=== PATIENT | male | born 1990 | race Caucasian/White ===

== ENCOUNTER 2017-01-13 21:44 | Inpatient (IN) | payer OTHER ==
--- NOTE | 2017-01-13 22:05 | HP ---
COWS - Scale Resting Pulse: 1= MS 81-100 Sweatin= Beads of Sweat on Face Restless Observation: 3= Extraneous Movement Pupil Size: 1= Pupils >than Normal Bone or Joint Aches: 2= Severe Diffuse Aches Runny Nose/ Eye Tearin= Runny Nose/Eyes GI Upset > 30mins: 2= Nausea/Diarrhea Tremor Observation: 2= Slight Tremor Visible Yawning Observation: 2= >3x During Session Anxiety or Irritability: 1=Feels Anxious/Irritable Goose Flesh Skin: 3=Piloerection COWS Score: 22 Admission ROS S - HPI Chief Complaint: WITHDRAWAL SYMPTOMS Allergies/Adverse Reactions: Allergies Allergy/AdvReac Type Severity Reaction Status Date / Time No Known Allergies Allergy Verified 06/29/16 17:00 History of Present Illness: 26 y.o. man with an extensive history of heroin dependence is here for detox. He completed detox here in 06/2016 and states he completed rehab at [facility] in 07/2016. Exam Limitations: No Limitations - Ebola screening Have you traveled outside of the country in the last 21 days: No (N) Have you had contact with anyone from an Ebola affected area: No Do you have a fever: No - Review of Systems Constitutional: Chills, Loss of Appetite, Night Sweats, Changes in sleep, Unintentional Wgt. Loss EENT: reports: Tearing, Nose Congestion Respiratory: reports: No Symptoms reported Cardiac: reports: Lightheadedness GI: reports: Constipated, Poor Appetite : reports: No Symptoms Reported Musculoskeletal: reports: Back Pain Integumentary: reports: No Symptoms Reported Neuro: reports: Headache Endocrine: reports: No Symptoms Reported Hematology: reports: No Symptoms Reported Psychiatric: reports: Orientated x3, Depressed, other (Insomnia) Other Systems: Reviewed and Negative Patient History - Patient Medical History Hx Anemia: No Hx Asthma: No Hx Chronic Obstructive Pulmonary Disease (COPD): No Hx Cancer: No Hx Cardiac Disorders: No Hx Congestive Heart Failure: No Hx Hypertension: No Hx Hypercholesterolemia: No Hx Pacemaker: No HX Cerebrovascular Accident: No Hx Seizures: No Hx Dementia: No Hx Diabetes: No Hx Gastrointestinal Disorders: No Hx Liver Disease: No Hx Genitourinary Disorders: No Hx Sexually Transmitted Disorders: No Hx Renal Disease (ESRD): No Hx Thyroid Disease: No Hx Human Immunodeficiency Virus (HIV): No Hx Hepatitis C: No Hx Depression: Yes Hx Suicide Attempt: No Hx Bipolar Disorder: No Hx Schizophrenia: No - Patient Surgical History Past Surgical History: No Hx Neurologic Surgery: No Hx Cataract Extraction: No Hx Cardiac Surgery: No Hx Lung Surgery: No Hx Breast Surgery: No Hx Breast Biopsy: No Hx Abdominal Surgery: No Hx Appendectomy: No Hx Cholecystectomy: No Hx Genitourinary Surgery: No Hx Section: No Hx Orthopedic Surgery: No Anesthesia Reaction: No - PPD History Previous Implant?: Yes Documented Results: Negative w/o proof Implanted On Prior R Admission?: Yes Date: 11/27/15 Results: 2 mm PPD to be Administered?: No - Reproductive History Patient is a Female of Child Bearing Age (11 -55 yrs old): No - Smoking Cessation Smoking history: Current every day smoker Have you smoked in the past 12 months: Yes Aproximately how many cigarettes per day: 20 Cigars Per Day: 0 Hx Chewing Tobacco Use: No Initiated information on smoking cessation: Yes 'Breaking Loose' booklet given: 01/13/17 - Substance & Tx. History Hx Alcohol Use: No Hx Substance Use: Yes Substance Use Type: Heroin Hx Substance Use Treatment: Yes - Substances Abused Heroin Route: Injection Frequency: Daily Amount used: 10 bags Age of first use: 22 Date of Last Use: 01/13/17 Family Disease History - Family Disease History Family Disease History: CA: Grandparent (crack dependence ), Respiratory: Mother (asthma), Sister (asthma), Other: Grandparent Admission Physical Exam BHS - Vital Signs Vital Signs: Last Vital Signs Temp Pulse Resp BP Pulse Ox 98.7 F 99 H 18 121/72 01/13/17 22:06 01/13/17 22:06 01/13/17 22:06 01/13/17 22:06 - Physical General Appearance: Yes: Tremorous, Irritable, Anxious HEENTM: Yes: Hearing grossly Normal, Normal ENT Inspection, Normocephalic, Normal Voice Respiratory: Yes: Lungs Clear, Normal Breath Sounds, No Respiratory Distress, No Accessory Muscle Use Neck: Yes: No masses,lesions,Nodules Breast: Yes: Breast Exam Deferred Cardiology: Yes: Regular Rate, S1, S2 Abdominal: Yes: Non Tender, Flat, Soft Genitourinary: Yes: Other (No complaints reported) Back: Yes: Normal Inspection Musculoskeletal: Yes: Back pain Extremities: Yes: Normal Inspection, Normal Range of Motion, Non-Tender Neurological: Yes: Alert, Motor Strength 5/5, Normal Mood/Affect, Normal Response Integumentary: Yes: Normal Color, Dry, Warm, [place] Lymphatic: Yes: Within Normal Limits - Diagnostic (1) IV drug user Current Visit: Yes Status: Chronic (2) Opioid dependence with withdrawal Current Visit: Yes Status: Chronic (3) Nicotine dependence Current Visit: Yes Status: Chronic Qualifiers: Nicotine product type: cigarettes Substance use status: uncomplicated Qualified Code(s): F17.210 - Nicotine dependence, cigarettes, uncomplicated Cleared for Admission [facility] - Detox or Rehab [facility] Level of Care: Medically Managed Detox Regimen/Protocol: Methadone S Breath Alcohol Content Breath Alcohol Content: 0
[2017-01-13 22:09] VITALS: BMI 23.7
[2017-01-13] MEDS ORDERED: MAG HYDROX/AL HYDROX/SIMETH 30 ML UNIT-DOSE CUP PO PRN (22:14)
[2017-01-13] MEDS ORDERED: hydrOXYzine PAMOATE 50 MG CAPSULE (FP) PO PRN (22:14)
[2017-01-13] MEDS ORDERED: LOPERAMIDE HCL 2 MG CAPSULE PO PRN (22:14)
[2017-01-13] MEDS ORDERED: MAGNESIUM CITRATE 300 ML BOTTLE PO PRN (22:14)
[2017-01-13] MEDS ORDERED: METHADONE HCL 10 MG TABLET (FOR DETOX USE ONLY) PO ONE ×2 (22:14→23:00)
[2017-01-13] MEDS ORDERED: guaiFENesin/D-METHORPHAN HB 10 ML UNIT-DOSE CUPS PO PRN (22:14)
[2017-01-13] MEDS ORDERED: MAGNESIUM HYDROX 2400MG/30ML ORAL SUSPENSION 30 ML CUP PO PRN (22:14)
[2017-01-13] MEDS ORDERED: ACETAMINOPHEN 325 MG TABLET (FP) PO PRN (22:14)
[2017-01-13] MEDS ORDERED: P-EPHED 60MG/TRIPROLIDI 2.5MG TABLET PO PRN (22:14)
[2017-01-13] MEDS ORDERED: MENTHOL/PHENOL 1 EACH UD MM PRN (22:14)
[2017-01-13] MEDS ORDERED: IBUPROFEN 400 MG TABLET (FP) PO PRN (22:14)
[2017-01-13] MEDS: diphenhydrAMINE HCL 50 MG CAPSULE PO PRN (23:53)
[2017-01-13] MEDS: BACITRACIN 30 GM TUBE TOPICAL OINTMENT TP SCH (23:57)
[2017-01-14] MEDS: NICOTINE POLACRILEX 2 MG GUM BUC PRN ×4 (00:42→22:25)
[2017-01-14 09:58] LABS: MCH 31.4 pg (25.7-33.7); MCHC 33.7 g/dl (32.0-35.9); MEAN CELL VOLUME 93.4 fl (80-96); MEAN PLT VOLUME 10.1 fl (7.5-11.1); PLATELET COUNT 130 K/MM3 (134-434); RDW 13.2 % (11.9-15.9); WHITE BLOOD COUNT 6.7 K/mm3 (4.0-10.0)
[2017-01-14] MEDS ORDERED: METHADONE HCL 10 MG TABLET (FOR DETOX USE ONLY) PO ONE (10:00)
[2017-01-14 10:21] LABS: ALBUMIN 3.5 g/dl (3.4-5.0); ALK PHOS 108 U/L (45-117); ANION GAP 8 (8-16); BILIRUBIN,TOTAL 0.5 mg/dL (0.2-1.0); CALCIUM 8.4 mg/dL (8.5-10.1); CO2 26 mmol/L (21-32); CREATININE 0.8 mg/dL (0.7-1.3); GLUCOSE,RANDOM 88 mg/dL (74-106); SGOT/AST 20 U/L (15-37); SGPT/ALT 22 U/L (12-78); TOT PROT 6.5 g/dl (6.4-8.2)
[2017-01-14] MEDS: PRENATAL VITAMINS W/ FOLIC ACID TABLET (FP) PO SCH (10:45)
[2017-01-14] MEDS: BACITRACIN 30 GM TUBE TOPICAL OINTMENT TP SCH ×2 (10:45→23:38)
[2017-01-14] MEDS: NICOTINE 21 MG/24 HOURS TOPICAL PATCH TD SCH (10:45)
--- NOTE | 2017-01-14 13:49 | CONSULT ---
[facility] Psychiatric Consult - Data Date of interview: 01/14/17 Admission source: [facility] Identifying data: Readmission to [facility] for this 26 y/o [place]-born male seeking detox treatment for heroin dependence.Patient is single without children ,domiciled (lives with mother),unemployed and supported by relatives. Substance Abuse History: - Smoking Cessation. Smoking history: Current every day smoker. Have you smoked in the past 12 months: Yes. Aproximately how many cigarettes per day: 20. Cigars Per Day: 0. Hx Chewing Tobacco Use: No. Initiated information on smoking cessation: Yes. 'Breaking Loose' booklet given : 01/13/17. - Substance & Tx. History. Hx Alcohol Use: No. Hx Substance Use: Yes. Substance Use Type: Heroin. Hx Substance Use Treatment: Yes. - Substances Abused. Heroin. Route: Injection. Frequency: Daily. Amount used: 10 bags. Age of first use: 22. Date of Last Use: 01/13/17. Confirmed by patient. Medical History: Patient endorses good general health. Psychiatric History: Patient denies. Physical/Sexual Abuse/Trauma History: Patient denies. Mental Status Exam - Mental Status Exam Alert and Oriented to: Time, Place, Person Cognitive Function: Good Patient Appearance: Well Groomed Mood: Hopeful, Euthymic Affect: Appropriate, Normal Range Patient Behavior: Cooperative Speech Pattern: Clear (bilingual) Voice Loudness: Normal Thought Process: Goal Oriented Thought Disorder: Not Present Hallucinations: Denies Suicidal Ideation: Denies Homicidal Ideation: Denies Insight/Judgement: Poor Sleep: Fair Appetite: Good Muscle strength/Tone: Normal Gait/Station: Normal Psychiatric Findings - Problem List ([place] 1, 2,3) (1) Opioid dependence with withdrawal Current Visit: Yes Status: Acute (2) Nicotine dependence Current Visit: Yes Status: Acute Qualifiers: Nicotine product type: cigarettes Substance use status: uncomplicated Qualified Code(s): F17.210 - Nicotine dependence, cigarettes, uncomplicated - Initial Treatment Plan Initial Treatment Plan: Psychoeducation.Detoxification.Observation.
[2017-01-14 14:41] LABS: HIV 1 AGp24 NEGATIVE
[2017-01-14 14:43] LABS: HIV 1 & 2 AB PRELIMINARY POSITIVE
--- NOTE | 2017-01-14 15:45 | EKG ---
Test Reason : Blood Pressure : / mmHG Vent. Rate : 078 BPM Atrial Rate : 078 BPM P-R Int : 126 ms QRS Dur : 086 ms QT Int : 366 ms P-R-T Axes : 049 064 048 degrees QTc Int : 417 ms NORMAL SINUS RHYTHM NORMAL ECG NO PREVIOUS ECGS AVAILABLE Confirmed by LAKSHMI BECKER, JUAN ([id number]) on 01/14/2017 3:45:10 PM Referred By: Confirmed By:JUAN MARTINS MD
[2017-01-14] MEDS: diazePAM 5 MG TABLET PO PRN ×2 (17:37→22:25)
--- NOTE | 2017-01-14 21:05 | PN ---
BHS COWS - Scale Resting Pulse: 0= [place] 80 or Below Sweatin=Flushed/Facial Moisture Restless Observation: 0= Sits Still Pupil Size: 0= Normal to Room Light Bone or Joint Aches: 2= Severe Diffuse Aches Runny Nose/ Eye Tearin= Runny Nose/Eyes GI Upset > 30mins: 1= Stomach Cramp Tremor Observation of Outstretched Hands: 2= Slight Tremor Visible Yawning Observation: 1= 1-2x During Session Anxiety or Irritability: 2=Irritable/Anxious Goose Flesh Skin: 3=Piloerection COWS Score: 15 BHS Progress Note (SOAP) Subjective: Interrupted Sleep, Sweating, H/A, Lower Back Ache. Objective: PT. A & O X 3, OBSERVED AMBULATING ON UNIT. NO ACUTE DISTRESS. 01/14/17 21:02 Vital Signs Temperature 97.4 F L 01/14/17 17:47 Pulse Rate 60 01/14/17 17:47 Respiratory Rate 18 01/14/17 17:47 Blood Pressure 118/77 01/14/17 17:47 O2 Sat by Pulse Oximetry (%) Laboratory Tests 01/14/17 01/14/17 01/14/17 08:00 08:00 08:00 WBC 6.7 RBC 4.27 Hgb 13.4 Hct 39.9 MCV 93.4 MCHC 33.7 RDW 13.2 Plt Count 130 L MPV 10.1 Sodium 140 Potassium 4.4 Chloride 106 Carbon Dioxide 26 Anion Gap 8 BUN 16 D Creatinine 0.8 Creat Clearance w eGFR > 60 Random Glucose 88 Calcium 8.4 L Total Bilirubin 0.5 D AST 20 D ALT 22 D Alkaline Phosphatase 108 Total Protein 6.5 Albumin 3.5 RPR Titer Nonreactive HIV 1&2 Antibody Screen Preliminary positive HIV P24 Antigen Negative LABS NOTED. RESULT OF PRELIMINARY POSITIVE HIV ANTIBODY SCREEN NOTED. 01/14/17 21:03 Assessment: 01/14/17 21:03 WITHDRAWAL SYMPTOMS. Plan: CONTINUE DETOX. PATIENT MADE AWARE OF HIV 1 & 2 ANTIBODY PRELIMINARY POSITIVE RESULT FROM 2016. NURSING VALUE STREAM COACH Radha LUO PRESENT AT TIME OF NOTIFICATION OF PATIENT. PATIENT NOTIFIED THAT BLOOD SAMPLE WILL BE SENT FOR CONFIRMATORY TESTING AND THAT RESULT WILL BE GIVEN TO HIM SOON IT IS AVAILABLE. PATIENT VERBALIZED UNDERSTANDING OF ALL INFORMATION PRESENTED TO HIM. PATIENT DENIES SUICIDAL IDEATION OR ANY INTENT TO HURT HIMSELF OR ANYONE ELSE. PATIENT OFFERED OPPORTUNITY TO ASK QUESTIONS ABOUT RESULT. PATIENT OFFERED SUGGESTIONS FOR RESOURCES FOR FOLLOW-UP CARE AND EVALUATION. PATIENT RESPONDED THAT HE WILL AWAIT RESULT OF CONFIRMATORY TESTING AND THEN PURSUE FOLLOW-UP MEDICAL CARE AT THAT TIME. WILL CONTINUE TO MONITOR AND ASSIST PATIENT WITH FOLLOW-UP MEDICAL AND PSYCHOSOCIAL RESOURCES FOR FURTHER EVALUATION HE GETS CLOSER TO DISCHARGE FROM DETOX. PATIENT ALSO ADVISED TO FOLLOW-UP AFTER DISCHARGE FROM DETOX FOR LOW ADMISSION PLATELET COUNT.
[2017-01-14] MEDS: diphenhydrAMINE HCL 50 MG CAPSULE PO PRN (22:25)
[2017-01-14] MEDS: THIAMINE HCL 100 MG TABLET (FP) PO SCH (22:25)
[2017-01-15] MEDS: diazePAM 5 MG TABLET PO PRN ×3 (05:46→22:23)
[2017-01-15] MEDS ORDERED: METHADONE HCL 5 MG TABLET (FOR DETOX USE ONLY) PO ONE (10:00)
[2017-01-15] MEDS: PRENATAL VITAMINS W/ FOLIC ACID TABLET (FP) PO SCH (10:22)
[2017-01-15] MEDS: NICOTINE 21 MG/24 HOURS TOPICAL PATCH TD SCH (10:22)
[2017-01-15] MEDS: BACITRACIN 30 GM TUBE TOPICAL OINTMENT TP SCH ×2 (10:22→22:25)
[2017-01-15] MEDS: NICOTINE POLACRILEX 2 MG GUM BUC PRN ×3 (10:54→22:23)
--- NOTE | 2017-01-15 15:45 | PN ---
BHS COWS - Scale Resting Pulse: 0= [place] 80 or Below Sweatin= Beads of Sweat on Face Restless Observation: 3= Extraneous Movement Pupil Size: 0= Normal to Room Light Bone or Joint Aches: 2= Severe Diffuse Aches Runny Nose/ Eye Tearin= Runny Nose/Eyes GI Upset > 30mins: 1= Stomach Cramp Tremor Observation of Outstretched Hands: 2= Slight Tremor Visible Yawning Observation: 1= 1-2x During Session Anxiety or Irritability: 2=Irritable/Anxious Goose Flesh Skin: 0=Smooth Skin COWS Score: 16 BHS Progress Note (SOAP) Subjective: Headache, back ache, sweating, chills, interrupted sleep Objective: 01/15/17 15:44 Last Vital Signs Temp Pulse Resp BP Pulse Ox 98.1 F 69 18 115/70 01/15/17 09:22 01/15/17 09:22 01/15/17 09:22 01/15/17 09:22 Laboratory Tests 01/14/17 01/14/17 01/14/17 08:00 08:00 08:00 WBC 6.7 RBC 4.27 Hgb 13.4 Hct 39.9 MCV 93.4 MCHC 33.7 RDW 13.2 Plt Count 130 L MPV 10.1 Sodium 140 Potassium 4.4 Chloride 106 Carbon Dioxide 26 Anion Gap 8 BUN 16 D Creatinine 0.8 Creat Clearance w eGFR > 60 Random Glucose 88 Calcium 8.4 L Total Bilirubin 0.5 D AST 20 D ALT 22 D Alkaline Phosphatase 108 Total Protein 6.5 Albumin 3.5 RPR Titer Nonreactive HIV 1&2 Antibody Screen Preliminary positive HIV P24 Antigen Negative Labs noted Assessment: 01/15/17 15:44 Withdrawal symptoms Plan: Continue detox
[2017-01-15] MEDS: diphenhydrAMINE HCL 50 MG CAPSULE PO PRN (22:23)
[2017-01-15] MEDS: THIAMINE HCL 100 MG TABLET (FP) PO SCH (22:23)
[2017-01-16] MEDS ORDERED: BACITRACIN 0.9 GM PACKET ONE (08:06)
[2017-01-16] MEDS ORDERED: METHADONE HCL 5 MG TABLET (FOR DETOX USE ONLY) PO ONE (10:00)
[2017-01-16] MEDS: PRENATAL VITAMINS W/ FOLIC ACID TABLET (FP) PO SCH (10:23)
[2017-01-16] MEDS: diazePAM 5 MG TABLET PO PRN (10:23)
[2017-01-16] MEDS: NICOTINE 21 MG/24 HOURS TOPICAL PATCH TD SCH (10:23)
[2017-01-16] MEDS: BACITRACIN 30 GM TUBE TOPICAL OINTMENT TP SCH ×2 (10:24→22:36)
[2017-01-16] MEDS: NICOTINE POLACRILEX 2 MG GUM BUC PRN ×3 (10:25→22:38)
--- NOTE | 2017-01-16 14:35 | PN ---
BHS Progress Note (SOAP) Subjective: Sweating,interrupted sleep,restless Objective: 01/16/17 14:34 Vital Signs - 8 hr 01/16/17 01/16/17 09:48 13:45 Temperature 98.2 F 98.6 F Pulse Rate 54 L 74 Respiratory 20 18 Rate Blood Pressure 113/75 113/76 Laboratory Last Values WBC 6.7 K/mm3 (4.0-10.0) 01/14/17 08:00 RBC 4.27 M/mm3 (4.00-5.60) 01/14/17 08:00 Hgb 13.4 GM/dL (11.7-16.9) 01/14/17 08:00 Hct 39.9 % (35.4-49) 01/14/17 08:00 MCV 93.4 fl (80-96) 01/14/17 08:00 MCHC 33.7 g/dl (32.0-35.9) 01/14/17 08:00 RDW 13.2 % (11.9-15.9) 01/14/17 08:00 Plt Count 130 K/MM3 (134-434) L 01/14/17 08:00 MPV 10.1 fl (7.5-11.1) 01/14/17 08:00 Sodium 140 mmol/L (136-145) 01/14/17 08:00 Potassium 4.4 mmol/L (3.5-5.1) 01/14/17 08:00 Chloride 106 mmol/L (98-107) 01/14/17 08:00 Carbon Dioxide 26 mmol/L (21-32) 01/14/17 08:00 Anion Gap 8 (8-16) 01/14/17 08:00 BUN 16 mg/dL (7-18) D 01/14/17 08:00 Creatinine 0.8 mg/dL (0.7-1.3) 01/14/17 08:00 Creat Clearance w eGFR > 60 (>60) 01/14/17 08:00 Random Glucose 88 mg/dL (74-106) 01/14/17 08:00 Calcium 8.4 mg/dL (8.5-10.1) L 01/14/17 08:00 Total Bilirubin 0.5 mg/dL (0.2-1.0) D 01/14/17 08:00 AST 20 U/L (15-37) D 01/14/17 08:00 ALT 22 U/L (12-78) D 01/14/17 08:00 Alkaline Phosphatase 108 U/L (45-117) 01/14/17 08:00 Total Protein 6.5 g/dl (6.4-8.2) 01/14/17 08:00 Albumin 3.5 g/dl (3.4-5.0) 01/14/17 08:00 RPR Titer Nonreactive (NONREACTIVE) 01/14/17 08:00 Hepatitis C Antibody <0.1 s/co ratio (0.0-0.9) 01/14/17 08:00 HIV 1&2 Ag/Ab, 4th Gen Non reactive (Non Reactive) 01/14/17 08:00 HIV 1&2 Antibody Screen Preliminary positive 01/14/17 08:00 HIV P24 Antigen Negative 01/14/17 08:00 labs noted Assessment: 01/16/17 14:35 Withdrawal sx. Plan: Continue detox
[2017-01-16] MEDS: THIAMINE HCL 100 MG TABLET (FP) PO SCH (22:36)
[2017-01-16] MEDS: diphenhydrAMINE HCL 50 MG CAPSULE PO PRN (22:36)
[2017-01-17] MEDS ORDERED: BACITRACIN 0.9 GM PACKET ONE ×2 (08:19→21:18)
[2017-01-17] MEDS ORDERED: METHADONE HCL 10 MG TABLET (FOR DETOX USE ONLY) PO ONE (10:00)
--- NOTE | 2017-01-17 10:09 | PN ---
BHS Progress Note (SOAP) Subjective: DECREASED WITHDRAWAL SX. SLIGHT FATIGUE. Objective: 01/17/17 10:08 Vital Signs Temperature 98.3 F 01/17/17 09:35 Pulse Rate 62 01/17/17 09:35 Respiratory Rate 18 01/17/17 09:35 Blood Pressure 116/72 01/17/17 09:35 O2 Sat by Pulse Oximetry (%) Laboratory Last Values WBC 6.7 K/mm3 (4.0-10.0) 01/14/17 08:00 RBC 4.27 M/mm3 (4.00-5.60) 01/14/17 08:00 Hgb 13.4 GM/dL (11.7-16.9) 01/14/17 08:00 Hct 39.9 % (35.4-49) 01/14/17 08:00 MCV 93.4 fl (80-96) 01/14/17 08:00 MCHC 33.7 g/dl (32.0-35.9) 01/14/17 08:00 RDW 13.2 % (11.9-15.9) 01/14/17 08:00 Plt Count 130 K/MM3 (134-434) L 01/14/17 08:00 MPV 10.1 fl (7.5-11.1) 01/14/17 08:00 Sodium 140 mmol/L (136-145) 01/14/17 08:00 Potassium 4.4 mmol/L (3.5-5.1) 01/14/17 08:00 Chloride 106 mmol/L (98-107) 01/14/17 08:00 Carbon Dioxide 26 mmol/L (21-32) 01/14/17 08:00 Anion Gap 8 (8-16) 01/14/17 08:00 BUN 16 mg/dL (7-18) D 01/14/17 08:00 Creatinine 0.8 mg/dL (0.7-1.3) 01/14/17 08:00 Creat Clearance w eGFR > 60 (>60) 01/14/17 08:00 Random Glucose 88 mg/dL (74-106) 01/14/17 08:00 Calcium 8.4 mg/dL (8.5-10.1) L 01/14/17 08:00 Total Bilirubin 0.5 mg/dL (0.2-1.0) D 01/14/17 08:00 AST 20 U/L (15-37) D 01/14/17 08:00 ALT 22 U/L (12-78) D 01/14/17 08:00 Alkaline Phosphatase 108 U/L (45-117) 01/14/17 08:00 Total Protein 6.5 g/dl (6.4-8.2) 01/14/17 08:00 Albumin 3.5 g/dl (3.4-5.0) 01/14/17 08:00 RPR Titer Nonreactive (NONREACTIVE) 01/14/17 08:00 Hepatitis C Antibody <0.1 s/co ratio (0.0-0.9) 01/14/17 08:00 HIV 1&2 Ag/Ab, 4th Gen Non reactive (Non Reactive) 01/14/17 08:00 HIV Note No Result Required. 01/14/17 08:00 HIV 1&2 Antibody Screen Preliminary positive 01/14/17 08:00 HIV P24 Antigen Negative 01/14/17 08:00 SPOKE TO CHAPO AT [facility] ABOUT HIV SCREENING AND RESULTS. PRELIMINARY POSITIVE SCREEN WITH LAB [facility] CONFIRMATORY NEGATIVE RESULTS ABOVE. NO FURTHER RESULT NEEDED. HOWEVER PT HAS BEEN COUNSELED TO FOLLOW UP SUBSEQUENT SCREENINGS TO R/O INFECTION DUE TO LIFESTYLE RISKS. COPY MADE AVAILABLE TO PT AND PROCESS EXPLAINED TO PATIENT. Assessment: 01/17/17 10:08 WITHDRAWAL SX Plan: CONTINUE DETOX
[2017-01-17] MEDS: PRENATAL VITAMINS W/ FOLIC ACID TABLET (FP) PO SCH (10:34)
[2017-01-17] MEDS: NICOTINE 21 MG/24 HOURS TOPICAL PATCH TD SCH (10:35)
[2017-01-17] MEDS: BACITRACIN 30 GM TUBE TOPICAL OINTMENT TP SCH ×2 (10:35→22:25)
[2017-01-17] MEDS: NICOTINE POLACRILEX 2 MG GUM BUC PRN ×3 (12:16→22:25)
[2017-01-17] MEDS: THIAMINE HCL 100 MG TABLET (FP) PO SCH (22:25)
[2017-01-17] MEDS: diphenhydrAMINE HCL 50 MG CAPSULE PO PRN (22:25)
[2017-01-18] MEDS ORDERED: METHADONE HCL 5 MG TABLET (FOR DETOX USE ONLY) PO ONE (06:00)
[2017-01-18] MEDS ORDERED: BACITRACIN 0.9 GM PACKET ONE ×2 (08:25→10:25)
--- NOTE | 2017-01-18 08:54 | DS ---
[facility] Detox Discharge Summary Admission Date: 01/13/17 Discharge Date: 01/18/17 - History Present History: Opioid Dependence Additional Comments: DETOX COMPLETED.ALERT O X 3.NAD. Pertinent Past History: HX DEPRESSION - Physical Exam Results Vital Signs: Vital Signs Temperature 97.7 F 01/18/17 06:44 Pulse Rate 80 01/18/17 06:44 Respiratory Rate 16 01/18/17 06:44 Blood Pressure 112/68 01/18/17 06:44 O2 Sat by Pulse Oximetry (%) Pertinent Admission Physical Exam Findings: WITHDRAWAL SX Laboratory Last Values WBC 6.7 K/mm3 (4.0-10.0) 01/14/17 08:00 RBC 4.27 M/mm3 (4.00-5.60) 01/14/17 08:00 Hgb 13.4 GM/dL (11.7-16.9) 01/14/17 08:00 Hct 39.9 % (35.4-49) 01/14/17 08:00 MCV 93.4 fl (80-96) 01/14/17 08:00 MCHC 33.7 g/dl (32.0-35.9) 01/14/17 08:00 RDW 13.2 % (11.9-15.9) 01/14/17 08:00 Plt Count 130 K/MM3 (134-434) L 01/14/17 08:00 MPV 10.1 fl (7.5-11.1) 01/14/17 08:00 Sodium 140 mmol/L (136-145) 01/14/17 08:00 Potassium 4.4 mmol/L (3.5-5.1) 01/14/17 08:00 Chloride 106 mmol/L (98-107) 01/14/17 08:00 Carbon Dioxide 26 mmol/L (21-32) 01/14/17 08:00 Anion Gap 8 (8-16) 01/14/17 08:00 BUN 16 mg/dL (7-18) D 01/14/17 08:00 Creatinine 0.8 mg/dL (0.7-1.3) 01/14/17 08:00 Creat Clearance w eGFR > 60 (>60) 01/14/17 08:00 Random Glucose 88 mg/dL (74-106) 01/14/17 08:00 Calcium 8.4 mg/dL (8.5-10.1) L 01/14/17 08:00 Total Bilirubin 0.5 mg/dL (0.2-1.0) D 01/14/17 08:00 AST 20 U/L (15-37) D 01/14/17 08:00 ALT 22 U/L (12-78) D 01/14/17 08:00 Alkaline Phosphatase 108 U/L (45-117) 01/14/17 08:00 Total Protein 6.5 g/dl (6.4-8.2) 01/14/17 08:00 Albumin 3.5 g/dl (3.4-5.0) 01/14/17 08:00 RPR Titer Nonreactive (NONREACTIVE) 01/14/17 08:00 Hepatitis C Antibody <0.1 s/co ratio (0.0-0.9) 01/14/17 08:00 HIV 1&2 Ag/Ab, 4th Gen Non reactive (Non Reactive) 01/14/17 08:00 HIV Note No Result Required. 01/14/17 08:00 HIV 1&2 Antibody Screen Preliminary positive 01/14/17 08:00 HIV P24 Antigen Negative 01/14/17 08:00 COPY OF LAB RESULT GIVEN TO PT AND INSTRUCTED PT FOR SUBSEQUENT F/U OF RETESTINGS OF HIV SCREENING TO R/O POSSIBLE INFECTION. - Treatment Hospital Course: Detox Protocol Followed, Detoxed Safely, Responded well, Discharged Condition Good, Rehab Referral Accepted Patient has Accepted a Rehab Referral to: [facility] - Medication Discharge Medications: Ambulatory Orders NK [No Known Home Medication] 06/29/16 - Diagnosis (1) Nicotine dependence Current Visit: Yes Status: Acute Qualifiers: Nicotine product type: cigarettes Substance use status: in withdrawal Qualified Code(s): F17.213 - Nicotine dependence, cigarettes, with withdrawal (2) Opioid dependence with withdrawal Current Visit: Yes Status: Acute (3) Weight loss Current Visit: Yes Status: Acute (4) Depression Current Visit: No Status: Suspected Qualifiers: Depression Type: dysthymia Qualified Code(s): F34.1 - Dysthymic disorder - AMA Did Patient Leave Against Medical Advice: No
[2017-01-18 09:29] VITALS: BP 111/74; PULSE 63; TEMP 98.1
[2017-01-18] MEDS: PRENATAL VITAMINS W/ FOLIC ACID TABLET (FP) PO SCH (10:24)
[2017-01-18] MEDS: NICOTINE 21 MG/24 HOURS TOPICAL PATCH TD SCH (10:24)
[2017-01-18] MEDS: BACITRACIN 30 GM TUBE TOPICAL OINTMENT TP SCH (10:25)
[2017-01-18] MEDS: NICOTINE POLACRILEX 2 MG GUM BUC PRN (10:25)
[2017-01-18 14:22] LABS: URINE APPEARANCE CLEAR; URINE BILIRUBIN NEGATIVE (NEGATIVE); URINE BLOOD NEGATIVE (NEGATIVE); URINE COLOR YELLOW; URINE GLUCOSE (UA) NEGATIVE (NEGATIVE); URINE KETONE NEGATIVE (NEGATIVE); URINE LEUK ESTERASE NEGATIVE (NEGATIVE); URINE NITRITE NEGATIVE (NEGATIVE); URINE PROTEIN NEGATIVE (NEGATIVE); URINE UROBILINOGEN NEGATIVE E.U./dl (0.2-1.0)
== END 2017-01-18 12:15 | disposition other institution (70) | DRG 773 ==
LOC: YASAS 21:44 → Y3N 22:27
PROVIDERS: ADMIT Internal Medicine; ATTEND Internal Medicine
PROC: HZ2ZZZZ Detoxification Services for Substance Abuse Treatment (ICD-10-PCS; principal; 2017-01-13)
DX: F11.23 Opioid dependence with withdrawal (principal); F17.213 Nicotine dependence, cigarettes, with withdrawal; F34.1 Dysthymic disorder; Z87.898 Personal history of other specified conditions
CPT/HCPCS: 36415; 80053; 81003; 85027; 86593; 86803; 87389; 93005; 93010

== ENCOUNTER 2017-01-18 12:19 | Inpatient (IN) | payer OTHER ==
[2017-01-18] MEDS ORDERED: MAGNESIUM HYDROX 2400MG/30ML ORAL SUSPENSION 30 ML CUP PO PRN (14:03)
[2017-01-18] MEDS ORDERED: guaiFENesin/D-METHORPHAN HB 10 ML UNIT-DOSE CUPS PO PRN (14:03)
[2017-01-18] MEDS ORDERED: MAG HYDROX/AL HYDROX/SIMETH 30 ML UNIT-DOSE CUP PO PRN (14:03)
[2017-01-18] MEDS ORDERED: MAGNESIUM CITRATE 300 ML BOTTLE PO PRN (14:03)
[2017-01-18] MEDS ORDERED: hydrOXYzine PAMOATE 50 MG CAPSULE (FP) PO PRN (14:03)
[2017-01-18] MEDS ORDERED: P-EPHED 60MG/TRIPROLIDI 2.5MG TABLET PO PRN (14:03)
[2017-01-18] MEDS ORDERED: ACETAMINOPHEN 325 MG TABLET (FP) PO PRN (14:03)
[2017-01-18] MEDS ORDERED: LOPERAMIDE HCL 2 MG CAPSULE PO PRN (14:03)
[2017-01-18] MEDS ORDERED: MENTHOL/PHENOL 1 EACH UD MM PRN (14:03)
--- NOTE | 2017-01-18 16:32 | HP ---
JOSEPH BECKER Rehab Assess/Revision - Admission History Admitted to Rehab from: [facility] Date of Admission to Rehab: 01/18/17 - Vital signs Vital Signs: Vital Signs Period Temp Pulse Resp BP Sys/Flores Pulse Ox Last 24 Hr 98.7 F 67 18 108/67 - Findings Detox History & Physical reviewed: Yes Concur with findings: Yes Comments/Additional Findings: transferred from detox to rehab admission as per protocol
[2017-01-18] MEDS: BACITRACIN 0.9 GM PACKET TP SCH (22:01)
[2017-01-18] MEDS: THIAMINE HCL 100 MG TABLET (FP) PO SCH (22:01)
[2017-01-18] MEDS: NICOTINE POLACRILEX 2 MG GUM BUC PRN (22:02)
[2017-01-18] MEDS: diphenhydrAMINE HCL 50 MG CAPSULE PO PRN (22:02)
[2017-01-19] MEDS: NICOTINE 21 MG/24 HOURS TOPICAL PATCH TD SCH (10:35)
[2017-01-19] MEDS: BACITRACIN 0.9 GM PACKET TP SCH ×2 (10:35→21:48)
[2017-01-19] MEDS: PRENATAL VITAMINS W/ FOLIC ACID TABLET (FP) PO SCH (10:36)
[2017-01-19] MEDS: IBUPROFEN 400 MG TABLET (FP) PO PRN (10:36)
[2017-01-19] MEDS: NICOTINE POLACRILEX 2 MG GUM BUC PRN (10:38)
--- NOTE | 2017-01-19 14:23 | HP ---
Psychiatrist Admission - Data Date of interview: 01/19/17 Admission source: 3N Identifying data: This is a first 5n inpatient rehabilitation admission for t his 27 year old [place]-born male who is single without children,domiciled ( lives with mother),unemployed and supported by relatives. Medical History: Reports a good physical health, smokes cigarettes 1/2 ppd. Psychiatric History: Patient denies history of psychiatric treatment. Physical/Sexual Abuse/Trauma History: Patient denies history of sexual, physical and verbal abuse. Vital Signs: Vital Signs - 24 hr 01/19/17 01/19/17 03:30 07:15 Temperature 98.2 F Pulse Rate 58 L Respiratory 16 18 Rate Blood Pressure 119/72 Allergies/Adverse Reactions: Allergies Allergy/AdvReac Type Severity Reaction Status Date / Time No Known Allergies Allergy Verified 01/18/17 12:50 Date of last physical exam: 01/13/17 Concur with the findings of this exam: Yes - Substance Abuse/Tx History Hx Alcohol Use: No Hx Substance Use: Yes (Started at age of 23, IV use 10 bags daily) Substance Use Type: Heroin, Marijuana (2-3 times a week) Hx Substance Use Treatment: Yes ([facility] - Admission Criteria Previous failed treatment: Yes Poor recovery environment: Yes Comorbidities: No Lacks judgement: Yes Mental Status Exam - Mental Status Exam Alert and Oriented to: Time, Place, Person Cognitive Function: Good Patient Appearance: Well Groomed Mood: Hopeful Affect: Appropriate, Mood Congruent Patient Behavior: Appropriate, Cooperative Speech Pattern: Clear, Appropriate Voice Loudness: Normal Thought Process: Goal Oriented Thought Disorder: Not Present Hallucinations: Denies Suicidal Ideation: Denies Homicidal Ideation: Denies Insight/Judgement: Fair Sleep: Fair Appetite: Fair Muscle strength/Tone: Normal Gait/Station: Normal Psychiatric Findings - Problem List ([place] 1, 2,3) (1) Nicotine dependence Current Visit: No Status: Acute Qualifiers: Nicotine product type: cigarettes Substance use status: in withdrawal Qualified Code(s): F17.213 - Nicotine dependence, cigarettes, with withdrawal (2) Cannabis dependence Current Visit: No Status: Chronic (3) Opioid dependence Current Visit: Yes Status: Acute
[2017-01-19] MEDS: THIAMINE HCL 100 MG TABLET (FP) PO SCH (21:48)
[2017-01-19] MEDS: diphenhydrAMINE HCL 50 MG CAPSULE PO PRN (21:49)
[2017-01-20] MEDS: BACITRACIN 0.9 GM PACKET TP SCH ×2 (10:11→21:54)
[2017-01-20] MEDS: PRENATAL VITAMINS W/ FOLIC ACID TABLET (FP) PO SCH (10:11)
[2017-01-20] MEDS: NICOTINE POLACRILEX 2 MG GUM BUC PRN ×2 (10:12→21:54)
[2017-01-20] MEDS: IBUPROFEN 400 MG TABLET (FP) PO PRN (10:12)
[2017-01-20] MEDS: NICOTINE 21 MG/24 HOURS TOPICAL PATCH TD SCH (10:13)
[2017-01-20] MEDS: THIAMINE HCL 100 MG TABLET (FP) PO SCH (21:54)
[2017-01-20] MEDS: diphenhydrAMINE HCL 50 MG CAPSULE PO PRN (21:54)
[2017-01-21] MEDS: BACITRACIN 0.9 GM PACKET TP SCH ×2 (10:02→22:00)
[2017-01-21] MEDS: NICOTINE 21 MG/24 HOURS TOPICAL PATCH TD SCH (10:02)
[2017-01-21] MEDS: PRENATAL VITAMINS W/ FOLIC ACID TABLET (FP) PO SCH (10:02)
[2017-01-21] MEDS: THIAMINE HCL 100 MG TABLET (FP) PO SCH (22:00)
[2017-01-21] MEDS: NICOTINE POLACRILEX 2 MG GUM BUC PRN (22:01)
[2017-01-21] MEDS: diphenhydrAMINE HCL 50 MG CAPSULE PO PRN (22:01)
[2017-01-22] MEDS: BACITRACIN 0.9 GM PACKET TP SCH ×2 (10:25→22:01)
[2017-01-22] MEDS: PRENATAL VITAMINS W/ FOLIC ACID TABLET (FP) PO SCH (10:25)
[2017-01-22] MEDS: NICOTINE 21 MG/24 HOURS TOPICAL PATCH TD SCH (10:26)
[2017-01-22] MEDS: NICOTINE POLACRILEX 2 MG GUM BUC PRN (10:26)
[2017-01-22] MEDS: THIAMINE HCL 100 MG TABLET (FP) PO SCH (22:01)
[2017-01-22] MEDS: diphenhydrAMINE HCL 50 MG CAPSULE PO PRN (22:01)
[2017-01-23] MEDS: NICOTINE 21 MG/24 HOURS TOPICAL PATCH TD SCH (10:37)
[2017-01-23] MEDS: PRENATAL VITAMINS W/ FOLIC ACID TABLET (FP) PO SCH (10:37)
[2017-01-23] MEDS: BACITRACIN 0.9 GM PACKET TP SCH ×2 (10:38→21:56)
[2017-01-23] MEDS: diphenhydrAMINE HCL 50 MG CAPSULE PO PRN (21:56)
[2017-01-23] MEDS: THIAMINE HCL 100 MG TABLET (FP) PO SCH (21:56)
[2017-01-24] MEDS: NICOTINE 21 MG/24 HOURS TOPICAL PATCH TD SCH (11:10)
[2017-01-24] MEDS: BACITRACIN 0.9 GM PACKET TP SCH ×2 (11:10→23:09)
[2017-01-24] MEDS: PRENATAL VITAMINS W/ FOLIC ACID TABLET (FP) PO SCH (11:10)
[2017-01-24] MEDS: THIAMINE HCL 100 MG TABLET (FP) PO SCH (23:09)
[2017-01-25] MEDS: NICOTINE 21 MG/24 HOURS TOPICAL PATCH TD SCH (10:28)
[2017-01-25] MEDS: BACITRACIN 0.9 GM PACKET TP SCH ×2 (10:28→21:56)
[2017-01-25] MEDS: PRENATAL VITAMINS W/ FOLIC ACID TABLET (FP) PO SCH (10:29)
[2017-01-25] MEDS: THIAMINE HCL 100 MG TABLET (FP) PO SCH (21:57)
[2017-01-26] MEDS: IBUPROFEN 400 MG TABLET (FP) PO PRN (10:59)
[2017-01-26] MEDS: PRENATAL VITAMINS W/ FOLIC ACID TABLET (FP) PO SCH (11:00)
[2017-01-26] MEDS: NICOTINE 21 MG/24 HOURS TOPICAL PATCH TD SCH (11:00)
[2017-01-26] MEDS: BACITRACIN 0.9 GM PACKET TP SCH (11:00)
[2017-01-26] MEDS: NICOTINE POLACRILEX 2 MG GUM BUC PRN (17:57)
[2017-01-26] MEDS: THIAMINE HCL 100 MG TABLET (FP) PO SCH (22:30)
[2017-01-27] MEDS: PRENATAL VITAMINS W/ FOLIC ACID TABLET (FP) PO SCH (10:21)
[2017-01-27] MEDS: NICOTINE POLACRILEX 2 MG GUM BUC PRN ×2 (12:14→19:09)
[2017-01-27] MEDS: THIAMINE HCL 100 MG TABLET (FP) PO SCH (21:52)
[2017-01-28] MEDS: PRENATAL VITAMINS W/ FOLIC ACID TABLET (FP) PO SCH (10:11)
[2017-01-28] MEDS: THIAMINE HCL 100 MG TABLET (FP) PO SCH (23:41)
[2017-01-29] MEDS: PRENATAL VITAMINS W/ FOLIC ACID TABLET (FP) PO SCH (10:52)
[2017-01-29] MEDS: THIAMINE HCL 100 MG TABLET (FP) PO SCH (21:41)
[2017-01-29] MEDS: NICOTINE POLACRILEX 2 MG GUM BUC PRN (21:42)
[2017-01-30] MEDS: PRENATAL VITAMINS W/ FOLIC ACID TABLET (FP) PO SCH (10:58)
[2017-01-30] MEDS: NICOTINE POLACRILEX 2 MG GUM BUC PRN (13:08)
[2017-01-30] MEDS: THIAMINE HCL 100 MG TABLET (FP) PO SCH (22:25)
[2017-01-31] MEDS: PRENATAL VITAMINS W/ FOLIC ACID TABLET (FP) PO SCH (10:46)
[2017-01-31] MEDS: NICOTINE POLACRILEX 2 MG GUM BUC PRN ×2 (12:25→17:25)
[2017-01-31] MEDS: diphenhydrAMINE HCL 50 MG CAPSULE PO PRN (21:46)
[2017-01-31] MEDS: THIAMINE HCL 100 MG TABLET (FP) PO SCH (21:46)
[2017-02-01 06:37] VITALS: PULSE 70; TEMP 97.9
[2017-02-01 06:47] VITALS: BP 128/75
[2017-02-01] MEDS: PRENATAL VITAMINS W/ FOLIC ACID TABLET (FP) PO SCH (10:07)
--- NOTE | 2017-02-01 10:13 | PN ---
Psychiatric Progress Note Vital Signs: Vital Signs Period Temp Pulse Resp BP Sys/Flores Pulse Ox Last 24 Hr 97.9 F 70 16-18 128/75 Date of Session: 02/01/17 Chief Complaint:: discharge visit HPI: Patient has addressed opioid, cannabis and nicotine dependence. ROS: WNL Current Medications: Active Medications Generic Name Dose Route Start Last Admin Trade Name Freq PRN Reason Stop Dose Admin Acetaminophen 650 mg 01/18/17 14:03 Tylenol - PO Q4H PRN FEVER OR PAIN Al Hydroxide/Mg Hydroxide 30 ml 01/18/17 14:03 Mylanta Oral Suspension - PO Q6H PRN DYSPEPSIA Diphenhydramine HCl 50 mg 01/18/17 14:03 01/31/17 21:46 Benadryl - PO 50 mg HSMR1 PRN Administration FOR ITCHING Eucalyptus/Menthol/Phenol/Sorbitol 1 each 01/18/17 14:03 Cepastat Lozenge - MM Q4H PRN SORE THROAT Guaifenesin 10 ml 01/18/17 14:03 Robitussin Dm - PO Q6H PRN COUGH Hydroxyzine Pamoate 50 mg 01/18/17 14:03 Vistaril - PO Q4H PRN AGITATION Ibuprofen 400 mg 01/18/17 14:03 01/26/17 10:59 Motrin - PO 400 mg Q6H PRN Administration PAIN Loperamide HCl 4 mg 01/18/17 14:03 Imodium - PO Q6H PRN DIARRHEA Magnesium Hydroxide 30 ml 01/18/17 14:03 Milk Of Magnesia - PO DAILY PRN CONSTIPATION Nicotine Polacrilex 2 mg 01/18/17 14:03 01/31/17 17:25 Nicorette Gum - BUC 2 mg Q2H PRN Administration NICOTINE REPLACEMENT RX Multivit/Folic Acid/Iron 1 tab 01/19/17 10:00 02/01/17 10:07 Vitamins (Sjr) - PO Not Given DAILY KARTHIKEYAN Pseudoephedrine/Triprolidine 1 combo 01/18/17 14:03 Actifed - PO TID PRN NASAL CONGESTION Thiamine HCl 100 mg 01/18/17 22:00 01/31/17 21:46 Vitamin B1 - PO 100 mg HS KARTHIKEYAN Administration Current Side Effect: No Lab tests ordered: No Lab tests reviewed: Yes Provider note:: Patient has completed today his treatment and met his goals, will contineu to address his issues at [facility] outpatient treatment program.Patient was educated on his addiction, implications/consequences on his physical health, the importance to maintain sobriety, he also educated on smoking cessation, he acknowledges undesrtanding the importance of changing attitudes for the utilization of supports to prevent relapses. Patient is stable for discharge today. MSE completed. Total face to face time:: 35 Mental Status Exam - Mental Status Exam Alert and Oriented to: Time, Place, Person Cognitive Function: Grossly Intact Patient Appearance: Well Groomed Mood: Hopeful Affect: Appropriate, Mood Congruent Patient Behavior: Appropriate, Cooperative Speech Pattern: Clear, Appropriate Voice Loudness: Normal Thought Process: Intact, Goal Oriented Thought Disorder: Not Present Hallucinations: Denies Suicidal Ideation: Denies Homicidal Ideation: Denies Insight/Judgement: Fair Sleep: Fair Appetite: Fair Muscle strength/Tone: Normal Gait/Station: Normal Psychiatric Treatment Plan - Problem List (1) Nicotine dependence Current Visit: No Qualifiers: Nicotine product type: cigarettes Substance use status: in withdrawal Qualified Code(s): F17.213 - Nicotine dependence, cigarettes, with withdrawal (2) Cannabis dependence Current Visit: No (3) Opioid dependence Current Visit: Yes
== END 2017-02-01 10:20 | disposition home or self-care (01) | DRG 772 ==
LOC: YASAS 12:19 → Y5N 12:20
PROVIDERS: ADMIT Psychiatry & Neurology Psychiatry; ATTEND Psychiatry & Neurology Psychiatry
PROC: HZ42ZZZ Group Counseling for Substance Abuse Treatment, Cognitive-Behavioral (ICD-10-PCS; principal; 2017-01-18)
DX: F11.20 Opioid dependence, uncomplicated (principal); F12.20 Cannabis dependence, uncomplicated; F17.213 Nicotine dependence, cigarettes, with withdrawal

== ENCOUNTER 2017-09-05 10:40 | Inpatient (IN) | payer OTHER ==
[2017-09-05 10:58] VITALS: BMI 24.4
--- NOTE | 2017-09-05 12:28 | HP ---
COWS - Scale Resting Pulse: 0= [place] 80 or Below Sweatin=Flushed/Facial Moisture (OIC) Restless Observation: 1= Difficult to Sit Still Pupil Size: 1= Pupils >than Normal Bone or Joint Aches: 1= Mild Discomfort Runny Nose/ Eye Tearin= Runny Nose/Eyes GI Upset > 30mins: 1= Stomach Cramp Tremor Observation: 0= None Yawning Observation: 0= None Anxiety or Irritability: 1=Feels Anxious/Irritable Goose Flesh Skin: 3=Piloerection COWS Score: 12 Admission [facility] Chief Complaint: 27 YO H/M FOR HEROIN WITHDRAWAL. Allergies/Adverse Reactions: Allergies Allergy/AdvReac Type Severity Reaction Status Date / Time No Known Allergies Allergy Verified 09/05/17 12:09 History of Present Illness: 27 Y/O H/M WITH ~ 6 YR HX OF HEROIN USE. NO PREVIOUS OTP. HAS BEEN DETOXED SEVERAL TIMES. ADMITS TO USING ~ 4-8 BAGS OF IV HEROIN/D. ADMITS TO DEPRESSION & DEHYDRATION. NO PREVIOUS SUICIDE ATTEMPTS, NO CURRENT S/H IDEATIONS. NO OTHER MEDICAL PROBLEMS BY HX. - Ebola screening Have you traveled outside of the country in the last 21 days: No (N) Have you had contact with anyone from an Ebola affected area: No Have you been sick,other than usual withdrawal symptoms: No Do you have a fever: No - Review of Systems Constitutional: Loss of Appetite, Night Sweats, Changes in sleep, Unintentional Wgt. Loss EENT: reports: No Symptoms Reported Respiratory: reports: No Symptoms reported Cardiac: reports: No Symptoms Reported GI: reports: Diarrhea : reports: No Symptoms Reported Musculoskeletal: reports: Muscle Pain (C/O EXCEMA, OLD TRACTS AND RECENT PUNCTURES. NO S/H IDEATIONS.) Patient History - Patient Medical History Hx Anemia: No Hx Asthma: No Hx Chronic Obstructive Pulmonary Disease (COPD): No Hx Cancer: No Hx Cardiac Disorders: No Hx Congestive Heart Failure: No Hx Hypertension: No Hx Hypercholesterolemia: No Hx Pacemaker: No HX Cerebrovascular Accident: No Hx Seizures: No Hx Dementia: No Hx Diabetes: No Hx Gastrointestinal Disorders: No Hx Liver Disease: No Hx Genitourinary Disorders: No Hx Sexually Transmitted Disorders: No Hx Renal Disease (ESRD): No Hx Thyroid Disease: No Hx Human Immunodeficiency Virus (HIV): No Hx Hepatitis C: No Hx Depression: No Hx Suicide Attempt: No Hx Bipolar Disorder: No Hx Schizophrenia: No - Patient Surgical History Past Surgical History: No Hx Neurologic Surgery: No Hx Cataract Extraction: No Hx Cardiac Surgery: No Hx Lung Surgery: No Hx Breast Surgery: No Hx Breast Biopsy: No Hx Abdominal Surgery: No Hx Appendectomy: No Hx Cholecystectomy: No Hx Genitourinary Surgery: No Hx Section: No Hx Orthopedic Surgery: No Anesthesia Reaction: No - PPD History Previous Implant?: Yes Documented Results: Negative w/proof Implanted On Prior [facility] Admission?: Yes Date: 01/15/17 Results: 0 mm - Smoking Cessation Smoking history: Current every day smoker Have you smoked in the past 12 months: Yes Aproximately how many cigarettes per day: 20 Cigars Per Day: 0 Hx Chewing Tobacco Use: No Initiated information on smoking cessation: Yes - Substances Abused Heroin Route: Injection Frequency: Daily Amount used: 4-8 bags Age of first use: 21 Date of Last Use: 09/04/17 Marijuana/Hashish Route: Smoking Frequency: Daily Amount used: 1 joint Age of first use: 12 Date of Last Use: 09/04/17 Family Disease History - Family Disease History Family Disease History: CA: Grandparent (crack dependence ), Respiratory: Mother (asthma), Sister (asthma), Other: Grandparent Admission Physical Exam BHS - Vital Signs Vital Signs: Vital Signs - 24 hr 09/05/17 10:56 Temperature 97.3 F L Pulse Rate 77 Respiratory 18 Rate Blood Pressure 144/73 - Physical General Appearance: Yes: No Apparent Distress, Appropriately Dressed BHS Breath Alcohol Content Breath Alcohol Content: 0 Urine Drug Screen - Results Drug Screen Negative: No Urine Drug Screen Results: THC-Marijuana, OPI-Opiates
[2017-09-05] MEDS ORDERED: diazePAM 5 MG TABLET PO PRN (12:37)
[2017-09-05] MEDS ORDERED: METHADONE HCL 10 MG TABLET (FOR DETOX USE ONLY) PO ONE ×5 (13:50→23:00)
[2017-09-05] MEDS ORDERED: guaiFENesin/D-METHORPHAN HB 10 ML UNIT-DOSE CUPS PO PRN (14:33)
[2017-09-05] MEDS ORDERED: MAGNESIUM CITRATE 300 ML BOTTLE PO PRN (14:33)
[2017-09-05] MEDS ORDERED: MAGNESIUM HYDROX 2400MG/30ML ORAL SUSPENSION 30 ML CUP PO PRN (14:33)
[2017-09-05] MEDS ORDERED: MAG HYDROX/AL HYDROX/SIMETH 30 ML UNIT-DOSE CUP PO PRN (14:33)
[2017-09-05] MEDS ORDERED: P-EPHED 60MG/TRIPROLIDI 2.5MG TABLET PO PRN (14:33)
[2017-09-05] MEDS ORDERED: LOPERAMIDE HCL 2 MG CAPSULE PO PRN (14:33)
[2017-09-05] MEDS ORDERED: MENTHOL/PHENOL 1 EACH UD MM PRN (14:33)
--- NOTE | 2017-09-05 15:49 | EKG ---
Test Reason : Blood Pressure : / mmHG Vent. Rate : 062 BPM Atrial Rate : 062 BPM P-R Int : 124 ms QRS Dur : 086 ms QT Int : 416 ms P-R-T Axes : 068 071 055 degrees QTc Int : 422 ms NORMAL SINUS RHYTHM WITH SINUS ARRHYTHMIA NORMAL ECG WHEN COMPARED WITH ECG OF 13-JAN-2017 22:55, NO SIGNIFICANT CHANGE WAS FOUND Confirmed by MD OLLIE, NABEEL ([id number]) on 09/05/2017 3:49:16 PM Referred By: Confirmed By:NABEEL LEVIN MD
[2017-09-05 16:33] LABS: HEMATOCRIT 44.7 % (35.4-49); HEMOGLOBIN 15.2 GM/dL (11.7-16.9); MCH 32.9 pg (25.7-33.7); MEAN CELL VOLUME 96.7 fl (80-96); MEAN PLT VOLUME 11.2 fl (7.5-11.1); PLATELET COUNT 152 K/MM3 (134-434); RBC 4.62 M/mm3 (4.00-5.60); RDW 12.8 % (11.9-15.9); WHITE BLOOD COUNT 8.5 K/mm3 (4.0-10.0)
[2017-09-05 16:51] LABS: URINE APPEARANCE CLEAR; URINE BILIRUBIN NEGATIVE (NEGATIVE); URINE BLOOD NEGATIVE (NEGATIVE); URINE COLOR YELLOW; URINE GLUCOSE (UA) NEGATIVE (NEGATIVE); URINE KETONE NEGATIVE (NEGATIVE); URINE LEUK ESTERASE NEGATIVE (NEGATIVE); URINE NITRITE NEGATIVE (NEGATIVE); URINE PROTEIN NEGATIVE (NEGATIVE); URINE UROBILINOGEN NEGATIVE mg/dL (0.2-1.0)
[2017-09-05] MEDS: NICOTINE 14 MG/24 HOURS TOPICAL PATCH TD SCH (18:15)
[2017-09-05] MEDS: NICOTINE POLACRILEX 2 MG GUM BUC PRN (19:09)
[2017-09-05 20:07] LABS: ALBUMIN 4.5 g/dl (3.4-5.0); ALK PHOS 116 U/L (45-117); ANION GAP 8 (8-16); BILIRUBIN,TOTAL 0.3 mg/dL (0.2-1.0); BLOOD UREA NITROGEN 12 mg/dL (7-18); CALCIUM 8.8 mg/dL (8.5-10.1); CHLORIDE 107 mmol/L (98-107); CO2 26 mmol/L (21-32); GLUCOSE,RANDOM 122 mg/dL (74-106); POTASSIUM 4.4 mmol/L (3.5-5.1); SGOT/AST 14 U/L (15-37); SGPT/ALT 16 U/L (12-78); SODIUM 141 mmol/L (136-145); TOT PROT 7.8 g/dl (6.4-8.2)
[2017-09-05] MEDS: diphenhydrAMINE HCL 25 MG CAPSULE (FP) PO PRN (22:01)
[2017-09-05] MEDS: THIAMINE HCL 100 MG TABLET (FP) PO SCH (22:01)
[2017-09-06] MEDS: PRENATAL VITAMINS W/ FOLIC ACID TABLET (FP) PO SCH (09:16)
[2017-09-06] MEDS: diazePAM 5 MG TABLET PO PRN ×3 (09:17→18:44)
[2017-09-06] MEDS ORDERED: METHADONE HCL 10 MG TABLET (FOR DETOX USE ONLY) PO ONE ×2 (10:00)
[2017-09-06] MEDS: IBUPROFEN 400 MG TABLET (FP) PO PRN (10:34)
[2017-09-06] MEDS: NICOTINE POLACRILEX 2 MG GUM BUC PRN ×2 (10:35→12:16)
[2017-09-06] MEDS: NICOTINE 14 MG/24 HOURS TOPICAL PATCH TD SCH (10:35)
--- NOTE | 2017-09-06 11:35 | PN ---
S COWS - Scale Resting Pulse: 0= [place] 80 or Below Sweatin= Chills/Flushing Restless Observation: 1= Difficult to Sit Still Pupil Size: 0= Normal to Room Light Bone or Joint Aches: 2= Severe Diffuse Aches Runny Nose/ Eye Tearin= None GI Upset > 30mins: 2= Nausea/Diarrhea Tremor Observation of Outstretched Hands: 2= Slight Tremor Visible Yawning Observation: 1= 1-2x During Session Anxiety or Irritability: 2=Irritable/Anxious Goose Flesh Skin: 3=Piloerection COWS Score: 14 S Progress Note (SOAP) Subjective: Interrupted sleep, H/A, Body Aches, Sweating, Diarrhea. Objective: PT. A & O X 3, OBSERVED AMBULATING ON UNIT. NO ACUTE DISTRESS. 09/06/17 11:34 Vital Signs Temperature 97.5 F L 09/06/17 09:16 Pulse Rate 63 09/06/17 09:16 Respiratory Rate 20 09/06/17 09:16 Blood Pressure 108/71 09/06/17 09:16 O2 Sat by Pulse Oximetry (%) Laboratory Tests 09/05/17 09/05/17 09/05/17 14:00 14:30 14:30 WBC 8.5 RBC 4.62 Hgb 15.2 D Hct 44.7 MCV 96.7 H MCH 32.9 MCHC 34.0 RDW 12.8 Plt Count 152 MPV 11.2 H D Sodium 141 Potassium 4.4 Chloride 107 Carbon Dioxide 26 Anion Gap 8 BUN 12 D Creatinine 1.0 D Creat Clearance w eGFR > 60 Random Glucose 122 H D Calcium 8.8 Total Bilirubin 0.3 D AST 14 L D ALT 16 D Alkaline Phosphatase 116 Total Protein 7.8 Albumin 4.5 D Urine Color Urine Appearance Urine pH Ur Specific [place] Urine Protein Urine Glucose (UA) Urine Ketones Urine Blood Urine Nitrite Urine Bilirubin Urine Urobilinogen Ur Leukocyte Esterase RPR Titer HIV 1&2 Antibody Screen Negative HIV P24 Antigen Negative 09/05/17 09/05/17 14:30 15:30 WBC RBC Hgb Hct MCV MCH MCHC RDW Plt Count MPV Sodium Potassium Chloride Carbon Dioxide Anion Gap BUN Creatinine Creat Clearance w eGFR Random Glucose Calcium Total Bilirubin AST ALT Alkaline Phosphatase Total Protein Albumin Urine Color Yellow Urine Appearance Clear Urine pH 6.0 Ur Specific [place] 1.027 Urine Protein Negative Urine Glucose (UA) Negative Urine Ketones Negative Urine Blood Negative Urine Nitrite Negative Urine Bilirubin Negative Urine Urobilinogen Negative Ur Leukocyte Esterase Negative RPR Titer Nonreactive HIV 1&2 Antibody Screen HIV P24 Antigen LABS NOTED. Assessment: 09/06/17 11:34 WITHDRAWAL SYMPTOMS. Plan: CONTINUE DETOX. INCREASE DAILY PO FLUID INTAKE.
[2017-09-06] MEDS: NICOTINE POLACRILEX 4 MG GUM BUC PRN ×3 (14:19→19:59)
[2017-09-06] MEDS: ACETAMINOPHEN 325 MG TABLET (FP) PO PRN ×2 (14:19→17:23)
[2017-09-06] MEDS: THIAMINE HCL 100 MG TABLET (FP) PO SCH (21:59)
[2017-09-06] MEDS: diphenhydrAMINE HCL 25 MG CAPSULE (FP) PO PRN (21:59)
[2017-09-06] MEDS: CYCLOBENZAPRINE HCL 10 MG TABLET (FP) PO SCH (21:59)
[2017-09-07] MEDS: CYCLOBENZAPRINE HCL 10 MG TABLET (FP) PO SCH ×3 (05:13→22:06)
[2017-09-07] MEDS ORDERED: METHADONE HCL 5 MG TABLET (FOR DETOX USE ONLY) PO ONE ×2 (10:00)
[2017-09-07] MEDS: NICOTINE POLACRILEX 4 MG GUM BUC PRN ×5 (10:26→22:07)
[2017-09-07] MEDS: NICOTINE 14 MG/24 HOURS TOPICAL PATCH TD SCH (10:26)
[2017-09-07] MEDS: PRENATAL VITAMINS W/ FOLIC ACID TABLET (FP) PO SCH (10:26)
[2017-09-07] MEDS: ACETAMINOPHEN 325 MG TABLET (FP) PO PRN ×2 (10:27→17:22)
[2017-09-07] MEDS: diazePAM 5 MG TABLET PO PRN ×4 (10:27→23:14)
--- NOTE | 2017-09-07 12:00 | PN ---
BHS COWS - Scale Resting Pulse: 0= [place] 80 or Below Sweatin= Chills/Flushing Restless Observation: 1= Difficult to Sit Still Pupil Size: 0= Normal to Room Light Bone or Joint Aches: 1= Mild Discomfort Runny Nose/ Eye Tearin= Nasal Congestion GI Upset > 30mins: 1= Stomach Cramp Tremor Observation of Outstretched Hands: 2= Slight Tremor Visible Yawning Observation: 1= 1-2x During Session Anxiety or Irritability: 2=Irritable/Anxious Goose Flesh Skin: 3=Piloerection COWS Score: 13 BHS Progress Note (SOAP) Subjective: Interrupted Sleep, Body Aches, H/A, Sweating. Objective: PT. A & O X 3, OBSERVED AMBULATING ON UNIT. NO ACUTE DISTRESS. 09/07/17 11:59 Vital Signs Temperature 98.3 F 09/07/17 09:59 Pulse Rate 51 L 09/07/17 09:59 Respiratory Rate 16 09/07/17 09:59 Blood Pressure 106/70 09/07/17 09:59 O2 Sat by Pulse Oximetry (%) Laboratory Tests 09/05/17 09/05/17 09/05/17 14:00 14:30 14:30 WBC 8.5 RBC 4.62 Hgb 15.2 D Hct 44.7 MCV 96.7 H MCH 32.9 MCHC 34.0 RDW 12.8 Plt Count 152 MPV 11.2 H D Sodium 141 Potassium 4.4 Chloride 107 Carbon Dioxide 26 Anion Gap 8 BUN 12 D Creatinine 1.0 D Creat Clearance w eGFR > 60 Random Glucose 122 H D Calcium 8.8 Total Bilirubin 0.3 D AST 14 L D ALT 16 D Alkaline Phosphatase 116 Total Protein 7.8 Albumin 4.5 D Urine Color Urine Appearance Urine pH Ur Specific [place] Urine Protein Urine Glucose (UA) Urine Ketones Urine Blood Urine Nitrite Urine Bilirubin Urine Urobilinogen Ur Leukocyte Esterase RPR Titer HIV 1&2 Antibody Screen Negative HIV P24 Antigen Negative 09/05/17 09/05/17 14:30 15:30 WBC RBC Hgb Hct MCV MCH MCHC RDW Plt Count MPV Sodium Potassium Chloride Carbon Dioxide Anion Gap BUN Creatinine Creat Clearance w eGFR Random Glucose Calcium Total Bilirubin AST ALT Alkaline Phosphatase Total Protein Albumin Urine Color Yellow Urine Appearance Clear Urine pH 6.0 Ur Specific [place] 1.027 Urine Protein Negative Urine Glucose (UA) Negative Urine Ketones Negative Urine Blood Negative Urine Nitrite Negative Urine Bilirubin Negative Urine Urobilinogen Negative Ur Leukocyte Esterase Negative RPR Titer Nonreactive HIV 1&2 Antibody Screen HIV P24 Antigen LABS NOTED. Assessment: 09/07/17 11:59 WITHDRAWAL SYMPTOMS. Plan: CONTINUE DETOX.
[2017-09-07] MEDS: THIAMINE HCL 100 MG TABLET (FP) PO SCH (22:06)
[2017-09-07] MEDS: diphenhydrAMINE HCL 25 MG CAPSULE (FP) PO PRN (22:06)
[2017-09-08] MEDS: diazePAM 5 MG TABLET PO PRN ×3 (05:17→14:28)
[2017-09-08] MEDS: CYCLOBENZAPRINE HCL 10 MG TABLET (FP) PO SCH ×3 (05:17→22:19)
[2017-09-08] MEDS: NICOTINE POLACRILEX 4 MG GUM BUC PRN ×5 (09:35→19:31)
[2017-09-08] MEDS ORDERED: METHADONE HCL 5 MG TABLET (FOR DETOX USE ONLY) PO ONE ×2 (10:00)
[2017-09-08] MEDS: PRENATAL VITAMINS W/ FOLIC ACID TABLET (FP) PO SCH (10:18)
[2017-09-08] MEDS: NICOTINE 14 MG/24 HOURS TOPICAL PATCH TD SCH (10:18)
--- NOTE | 2017-09-08 15:20 | PN ---
BHS Progress Note (SOAP) Subjective: Sweating, Constipation, Hot / Cold Sensations, Interrupted sleep, H/A, Body Aches. Objective: PT. A & O X 3, OBSERVED AMBULATING ON UNIT. NO ACUTE DISTRESS. 09/08/17 15:19 Vital Signs Temperature 97.6 F 09/08/17 13:30 Pulse Rate 76 09/08/17 13:30 Respiratory Rate 18 09/08/17 13:30 Blood Pressure 108/71 09/08/17 13:30 O2 Sat by Pulse Oximetry (%) Laboratory Tests 09/05/17 09/05/17 09/05/17 14:00 14:30 14:30 WBC 8.5 RBC 4.62 Hgb 15.2 D Hct 44.7 MCV 96.7 H MCH 32.9 MCHC 34.0 RDW 12.8 Plt Count 152 MPV 11.2 H D Sodium 141 Potassium 4.4 Chloride 107 Carbon Dioxide 26 Anion Gap 8 BUN 12 D Creatinine 1.0 D Creat Clearance w eGFR > 60 Random Glucose 122 H D Calcium 8.8 Total Bilirubin 0.3 D AST 14 L D ALT 16 D Alkaline Phosphatase 116 Total Protein 7.8 Albumin 4.5 D Urine Color Urine Appearance Urine pH Ur Specific [place] Urine Protein Urine Glucose (UA) Urine Ketones Urine Blood Urine Nitrite Urine Bilirubin Urine Urobilinogen Ur Leukocyte Esterase RPR Titer HIV 1&2 Antibody Screen Negative HIV P24 Antigen Negative 09/05/17 09/05/17 14:30 15:30 WBC RBC Hgb Hct MCV MCH MCHC RDW Plt Count MPV Sodium Potassium Chloride Carbon Dioxide Anion Gap BUN Creatinine Creat Clearance w eGFR Random Glucose Calcium Total Bilirubin AST ALT Alkaline Phosphatase Total Protein Albumin Urine Color Yellow Urine Appearance Clear Urine pH 6.0 Ur Specific [place] 1.027 Urine Protein Negative Urine Glucose (UA) Negative Urine Ketones Negative Urine Blood Negative Urine Nitrite Negative Urine Bilirubin Negative Urine Urobilinogen Negative Ur Leukocyte Esterase Negative RPR Titer Nonreactive HIV 1&2 Antibody Screen HIV P24 Antigen LABS NOTED. Assessment: 09/08/17 15:19 WITHDRAWAL SYMPTOMS. Plan: CONTINUE DETOX. PRN MOM FOR CONSTIPATION. INCREASE DAILY PO FLUID INTAKE.
[2017-09-08] MEDS: IBUPROFEN 400 MG TABLET (FP) PO PRN (17:29)
[2017-09-08] MEDS: THIAMINE HCL 100 MG TABLET (FP) PO SCH (22:19)
[2017-09-08] MEDS: diphenhydrAMINE HCL 25 MG CAPSULE (FP) PO PRN (22:20)
[2017-09-08] MEDS: HYDROCORTISONE 0.5% TOPICAL OINTMENT TUBE TP SCH (22:20)
[2017-09-09] MEDS: CYCLOBENZAPRINE HCL 10 MG TABLET (FP) PO SCH ×3 (05:08→22:13)
[2017-09-09] MEDS ORDERED: METHADONE HCL 10 MG TABLET (FOR DETOX USE ONLY) PO ONE ×2 (10:00)
[2017-09-09] MEDS: NICOTINE POLACRILEX 4 MG GUM BUC PRN ×6 (10:15→22:12)
[2017-09-09] MEDS: PRENATAL VITAMINS W/ FOLIC ACID TABLET (FP) PO SCH (10:15)
[2017-09-09] MEDS: HYDROCORTISONE 0.5% TOPICAL OINTMENT TUBE TP SCH ×2 (10:15→22:14)
[2017-09-09] MEDS: NICOTINE 14 MG/24 HOURS TOPICAL PATCH TD SCH (10:15)
[2017-09-09] MEDS: ACETAMINOPHEN 325 MG TABLET (FP) PO PRN ×2 (13:48→21:02)
--- NOTE | 2017-09-09 16:11 | PN ---
BHS Progress Note (SOAP) Subjective: Stomach Cramping, Sweating, Chills. Objective: PT. A & O X 3, OBSERVED AMBULATING ON UNIT. NO ACUTE DISTRESS. 09/09/17 16:10 Vital Signs Temperature 96.9 F L 09/09/17 13:31 Pulse Rate 87 09/09/17 13:31 Respiratory Rate 18 09/09/17 13:31 Blood Pressure 105/68 09/09/17 13:31 O2 Sat by Pulse Oximetry (%) Laboratory Tests 09/05/17 09/05/17 09/05/17 14:00 14:30 14:30 WBC 8.5 RBC 4.62 Hgb 15.2 D Hct 44.7 MCV 96.7 H MCH 32.9 MCHC 34.0 RDW 12.8 Plt Count 152 MPV 11.2 H D Sodium 141 Potassium 4.4 Chloride 107 Carbon Dioxide 26 Anion Gap 8 BUN 12 D Creatinine 1.0 D Creat Clearance w eGFR > 60 Random Glucose 122 H D Calcium 8.8 Total Bilirubin 0.3 D AST 14 L D ALT 16 D Alkaline Phosphatase 116 Total Protein 7.8 Albumin 4.5 D Urine Color Urine Appearance Urine pH Ur Specific [place] Urine Protein Urine Glucose (UA) Urine Ketones Urine Blood Urine Nitrite Urine Bilirubin Urine Urobilinogen Ur Leukocyte Esterase RPR Titer HIV 1&2 Antibody Screen Negative HIV P24 Antigen Negative 09/05/17 09/05/17 14:30 15:30 WBC RBC Hgb Hct MCV MCH MCHC RDW Plt Count MPV Sodium Potassium Chloride Carbon Dioxide Anion Gap BUN Creatinine Creat Clearance w eGFR Random Glucose Calcium Total Bilirubin AST ALT Alkaline Phosphatase Total Protein Albumin Urine Color Yellow Urine Appearance Clear Urine pH 6.0 Ur Specific [place] 1.027 Urine Protein Negative Urine Glucose (UA) Negative Urine Ketones Negative Urine Blood Negative Urine Nitrite Negative Urine Bilirubin Negative Urine Urobilinogen Negative Ur Leukocyte Esterase Negative RPR Titer Nonreactive HIV 1&2 Antibody Screen HIV P24 Antigen LABS NOTED. Assessment: 09/09/17 16:10 WITHDRAWAL SYMPTOMS. Plan: CONTINUE DETOX. INCREASE DAILY PO FLUID INTAKE.
[2017-09-09] MEDS: THIAMINE HCL 100 MG TABLET (FP) PO SCH (22:13)
[2017-09-09] MEDS: diphenhydrAMINE HCL 25 MG CAPSULE (FP) PO PRN (22:13)
[2017-09-10] MEDS: CYCLOBENZAPRINE HCL 10 MG TABLET (FP) PO SCH (05:42)
[2017-09-10] MEDS ORDERED: METHADONE HCL 5 MG TABLET (FOR DETOX USE ONLY) PO ONE ×2 (06:00)
[2017-09-10 06:16] VITALS: BP 98/61; PULSE 60; TEMP 96.8
--- NOTE | 2017-09-10 17:37 | DS ---
[facility] Detox Discharge Summary Admission Date: 09/05/17 Discharge Date: 09/10/17 - History Present History: Cannabis Dependence, Opioid Dependence Additional Comments: PT. ORIGINALLY PLANNING ON GOING TO [facility] FOR AFTERCARE. HOWEVER, NO BEDS AVAILABLE AT [facility] AT THIS TIME. PATIENT WILL LIKELY APPLY FOR ADMISSION TO [facility] ([place] TOMORROW. PATIENT WAS DISCHARGED FROM DETOX UNIT IN STABLE MEDICAL CONDITION. Pertinent Past History: Nicotine Dependence. - Physical Exam Results Vital Signs: Vital Signs Temperature 96.8 F L 09/10/17 06:15 Pulse Rate 60 09/10/17 06:15 Respiratory Rate 18 09/10/17 06:15 Blood Pressure 98/61 09/10/17 06:15 O2 Sat by Pulse Oximetry (%) Pertinent Admission Physical Exam Findings: WITHDRAWAL SYMPTOMS. Laboratory Tests 09/05/17 09/05/17 09/05/17 14:00 14:30 14:30 WBC 8.5 RBC 4.62 Hgb 15.2 D Hct 44.7 MCV 96.7 H MCH 32.9 MCHC 34.0 RDW 12.8 Plt Count 152 MPV 11.2 H D Sodium 141 Potassium 4.4 Chloride 107 Carbon Dioxide 26 Anion Gap 8 BUN 12 D Creatinine 1.0 D Creat Clearance w eGFR > 60 Random Glucose 122 H D Calcium 8.8 Total Bilirubin 0.3 D AST 14 L D ALT 16 D Alkaline Phosphatase 116 Total Protein 7.8 Albumin 4.5 D Urine Color Urine Appearance Urine pH Ur Specific [place] Urine Protein Urine Glucose (UA) Urine Ketones Urine Blood Urine Nitrite Urine Bilirubin Urine Urobilinogen Ur Leukocyte Esterase RPR Titer HIV 1&2 Antibody Screen Negative HIV P24 Antigen Negative 09/05/17 09/05/17 14:30 15:30 WBC RBC Hgb Hct MCV MCH MCHC RDW Plt Count MPV Sodium Potassium Chloride Carbon Dioxide Anion Gap BUN Creatinine Creat Clearance w eGFR Random Glucose Calcium Total Bilirubin AST ALT Alkaline Phosphatase Total Protein Albumin Urine Color Yellow Urine Appearance Clear Urine pH 6.0 Ur Specific [place] 1.027 Urine Protein Negative Urine Glucose (UA) Negative Urine Ketones Negative Urine Blood Negative Urine Nitrite Negative Urine Bilirubin Negative Urine Urobilinogen Negative Ur Leukocyte Esterase Negative RPR Titer Nonreactive HIV 1&2 Antibody Screen HIV P24 Antigen LABS NOTED. - Treatment Hospital Course: Detox Protocol Followed, Detoxed Safely, Responded well, Discharged Condition Good, Rehab Referral Accepted Patient has Accepted a Rehab Referral to: [facility] ([place]). - Medication Discharge Medications: Ambulatory Orders NK [No Known Home Medication] 06/29/16 - Diagnosis (1) Cannabis dependence, uncomplicated Status: Acute (2) Opioid dependence with withdrawal Status: Acute (3) Nicotine dependence Status: Chronic Qualifiers: Nicotine product type: cigarettes Substance use status: uncomplicated Qualified Code(s): F17.210 - Nicotine dependence, cigarettes, uncomplicated - AMA Did Patient Leave Against Medical Advice: No
== END 2017-09-10 09:45 | disposition home or self-care (01) | DRG 773 ==
LOC: YASAS 10:40 → Y3N 13:36
PROVIDERS: ADMIT Internal Medicine; ATTEND Internal Medicine
PROC: HZ2ZZZZ Detoxification Services for Substance Abuse Treatment (ICD-10-PCS; principal; 2017-09-05)
DX: F11.23 Opioid dependence with withdrawal (principal); F12.20 Cannabis dependence, uncomplicated; F17.210 Nicotine dependence, cigarettes, uncomplicated
CPT/HCPCS: 36415; 80053; 81003; 85027; 86593; 87389; 93005; 93010